=== PATIENT | female | born 1945 | race Caucasian/White ===

== ENCOUNTER → 2016-10-20 | Outpatient (CLI) | payer MEDICARE ==
[~2016-10-20] MED LIST: CLOP75 PO; IMDU60TA PO; NITR0.4S SL; SIMV40TA OR; TOPR25TA2 PO
[2016-10-20 10:42] LABS: BLOOD GAS CARBOXYHEMOGLOBIN 1.3 % (0-4); BLOOD GAS HCO3 23 mmol/L (22-26); BLOOD GAS METHEMOGLOBIN 1.1 % (0-2); BLOOD GAS O2 HGB SATURATION 94 % (90-100); BLOOD GAS OXYGEN CONTENT 19.5 Vol % (12.0-20.0); BLOOD GAS PCO2 38 mmHg (38-42); BLOOD GAS PO2 89 mmHg (61-120); BLOOD GAS TOTAL HGB 14.7 G/DL (12.0-16.0); TEMP CORR TO 98.6
[2016-10-20 10:43] LABS: CRITICAL VALUE NO; DRAW SITE RT RADIAL; FIO2 21 %; NUMBER OF ARTERIAL PUNCTURES 1; STAT NO; ULNAR PULSE PRESENT
--- NOTE | 2016-10-28 10:04 | RSPPFT ---
DATE OF PROCEDURE: 10/20/16 COMMENTS: Spirometry demonstrates an FEV1 of 1.5 at 77% of predicted, FVC of 2.3 at 94%, FEV1/FVC ratio is 66%. The FEF 25-75 is 42% of predicted. Post-bronchodilator study demonstrated significant improvements in all the spirometric values. Lung volumes demonstrated a raised RV/TLC ratio suggesting hyperinflation and air trapping. Diffusion capacity is mildly reduced. Flow volume loops are suggestive of an obstructive pattern. Room air arterial blood gases show pH of 0.7, PCO2 of 38, PO2 of 89, O2 Saturation of 94% with a normal acid base balance. IMPRESSION: 1. Mild to moderate obstructive disease. 2. Significant response to use of bronchodilator indicating reversibility. 3. Mild reduction in diffusion capacity.
== END ==
LOC: HRSP 09:30
DX: J44.9 Chronic obstructive pulmonary disease, unspecified (principal); R06.00 Dyspnea, unspecified; I10 Essential (primary) hypertension
CPT/HCPCS: 36600; 82805; 94060; 94726; 94729